=== PATIENT | female | born 1990 | race Caucasian/White ===

== ENCOUNTER 2021-11-07 19:31 | Emergency (ER) | payer OTHER ==
[~2021-11-07] VITALS: Ht 162.6 cm; Wt 72.6 kg
[2021-11-07] MEDS ORDERED: MEDROLPACK PO (23:10)
[2021-11-07] MEDS ORDERED: ZITHROMAX500 MG PO (23:13)
== END 2021-11-07 23:53 | disposition home or self-care (01) ==
LOC: ER 19:31
DX: R51.9 Headache, unspecified (principal)

== ENCOUNTER 2022-01-05 21:32 | Emergency (ER) | payer OTHER ==
[~2022-01-05] VITALS: Ht 165.1 cm; Wt 74.8 kg
[~2022-01-05 21:32] MED LIST: MEDROLPACK PO; ZITHROMAX500 MG PO
== END 2022-01-05 22:55 | disposition home or self-care (01) ==
LOC: ER 21:32
DX: L03.116 Cellulitis of left lower limb (principal); M25.472 Effusion, left ankle

== ENCOUNTER 2022-11-15 13:49 | Emergency (ER) | payer OTHER ==
[~2022-11-15] VITALS: Ht 162.6 cm; Wt 78.5 kg
[2022-11-15] MEDS ORDERED: METOPROLOL SUCC25 MG PO (14:00)
== END 2022-11-15 17:16 | disposition home or self-care (01) ==
LOC: ER 13:49
DX: S13.8XXA Sprain of joints and ligaments of other parts of neck, initial encounter (principal); X58.XXXA Exposure to other specified factors, initial encounter; Y93.89 Activity, other specified; Y92.89 Other specified places as the place of occurrence of the external cause; Y99.8 Other external cause status; R42 Dizziness and giddiness